=== PATIENT | male | born 1995 | race Hispanic/Latino ===

== ENCOUNTER 2024-11-07 14:20 | Emergency (ER) | payer SELFPAY ==
[2024-11-07] VITALS (23 sets, daily range): BP systolic 119–133; BP diastolic 73–92; PULSE 74–90; RESP 16–24; TEMP 36.6–36.8; O2SAT 92–98; BMI 32.2
--- NOTE | 2024-11-07 14:36 | CT_ITS ---
PROCEDURE: ABDOMEN/PELVIS W IV CONT ONLY REASON FOR EXAM: 29-year-old male, mid/upper abdominal pain nausea, vomiting, diarrhea and jaundice. Heavy alcohol abuse per patient. TECHNIQUE: Abdomen and pelvis CT with intravenous contrast. No oral contrast. IV CONTRAST: Administered. COMPARISON: None. FINDINGS: Lung bases: Small right lower lobe consolidation/atelectasis. The heart is normal in size. Liver: Mild hepatomegaly with diffuse hepatic steatosis. Ill-defined hypodensity within the caudate lobe measuring approximately 4.2 cm (series 2, image 39). The major portal veins are patent. No biliary ductal dilation. Gallbladder: The gallbladder is distended with a dependent punctate calcification. There is diffuse gallbladder wall thickening and pericholecystic fluid. Spleen: Mild splenomegaly. Pancreas: Mild pancreatic atrophy. Adrenals: Unremarkable. Kidneys: No hydronephrosis or nephrolithiasis. Bladder: Minimally distended and unremarkable. Reproductive Organs: Unremarkable. Bowel: The bowel loops are nondilated with diffuse bowel wall thickening enhancement and edema. Moderate volume abdominopelvic ascites. No free air. The appendix is unremarkable. Lymph nodes: Prominent mesenteric and periportal lymph nodes, likely reactive. Vasculature: Major vascular structures are unremarkable. Bones: Unremarkable. CT/Abdomen/Pelvis W IV Cont ONLY IMPRESSION: 1. No acute abdominopelvic finding. 2. Findings of cirrhosis and portal hypertension with mild hepatosplenomegaly a nd moderate volume ascites. Diagnostic and therapeutic paracentesis may be useful for further characterization. 3. Findings compatible with portal colopathy and portal congestive cholecystopa thy. 4. Ill-defined hypodensity within the caudate lobe, which may be secondary to t iming of contrast bolus. Outpatient, nonemergent CT abdomen (liver protocol) could be performed for further evaluation if not re cently performed. One or more dose reduction techniques were used (e.g., Automated exposure contr ol, adjustment of the mA and/or kV according to patient size, use of iterative reconstruction technique). Reading Location: [facility]
[2024-11-07] MEDS: Ondansetron 4 MG/2 ML Vial IV (14:43)
[2024-11-07] MEDS: 0.9% Normal Saline (1000mL) 1,000 ML 999 ML IV (14:43)
[2024-11-07] MEDS: Morphine 4 MG/ML Syringe IV (14:43)
--- NOTE | 2024-11-07 14:49 | EDS_ITS ---
HPI <RAJ Lee - Last Filed: 11/07/24 16:59> History of Present Illness Chief Complaint: Abd Pain Narrative Narrative: Patient is a 29-year-old male with history of alcoholic cirrhosis, who is Maltese-speaking. I was able to use a interpretation service iPad throughout the entire patient interaction. Patient has been getting more yellow over the last 22 days. Patient is accompanied by his as well as his friend. Patient states he has not had a drink of alcohol in the last 10 days. Patient states that in July 2024, he had a seizure secondary to not having alcohol, and then since then has been getting yellow intermittently. Patient states that he is also having abdominal pain and distention. He has never had a paracentesis. Patient has no PCP. PFSH <RAJ Lee - Last Filed: 11/07/24 16:59> [facility] Medical History Anxiety Seizure AA (alcohol abuse) Allergy/AdvReac Type Severity Reaction Status Date / Time No Known Allergies Allergy Verified 11/07/24 14:34 Social History Smoking Status: Never smoker ROS <RAJ Lee - Last Filed: 11/07/24 16:59> ROS ED ROS Narrative Constitutional: Negative for fever, chills, weight loss, weakness Eyes: Negative for vision loss, vision change, double vision ENT: Negative for any sore throat, ear pain, congestion Cardiovascular: Negative for any chest pain, tightness, palpitations Respiratory: Negative for any cough, sputum production, hemoptysis, dyspnea, dyspnea on exertion, orthopnea Gastrointestinal: Negative for any nausea, vomiting, diarrhea, constipation, blood in stool, blood in vomit. Positive for abdominal pain, bloating : Negative for any urinary frequency, dysuria, retention, blood in urine Muscle skeletal: Negative for any neck pain, back pain Neurological: Negative for any headache, syncope, dizziness Skin: Negative for any rashes, itching, abrasions, lacerations. Positive for jaundice Psychiatric: Negative for any depression, anxiety, stress, suicidal ideation, homicidal ideation Hematologic: Negative for any excessive bruising, easy bleeding EXAM <RAJ Lee - Last Filed: 11/07/24 16:59> Physical Exam Narrative Exam Narrative: Vital signs reviewed. Upon initial evaluation, just by looking at the patient, he is severely jaundiced. Scleral icterus. HEET: Head normocephalic atraumatic, TMs clear bilaterally. Posterior pharynx is clear, dry mucous membranes. Nares clear bilaterally. Scleral icterus noted in the cornea Neck: Supple with no lymphadenopathy or tenderness. No signs of meningismus. Cardiac: Regular rate and rhythm no murmurs gallops or rubs, equal peripheral pulses bilaterally. Respiratory: Lungs clear to auscultation bilaterally. No chest tenderness. Abdomen: Patient has obvious distention, tenderness throughout the entire abdominal area. Patient's pain is mostly secondary to pressure and fluid overload. No abdominal bruit or pulsatile masses. No hepatosplenomegaly Extremities: No peripheral edema, no signs of gross trauma or deformity. Active full range of motion of all extremities. Neuro: Cranial nerves II through XII intact, no focal neurological deficits. Skin: Clean dry and intact with no rash, purpura, petechiae, vesicles or pustules. Backs/flank: No CVA tenderness, no midline spinal tenderness, no deformity. Psych: Normal mood and affect. No SI, HI or acute psychosis. Const Vital Signs: 11/07/24 14:21 11/07/24 15:21 11/07/24 16:00 Temperature 98 F Temperature Source Oral Pulse Rate 83 79 81 Respiratory Rate 24 H 16 Blood Pressure 129/92 H 131/76 H 131/78 H Blood Pressure Mean 104 94 95 Pulse Ox 98 96 98 Oxygen Delivery Method Room Air Room Air Room Air Constitutional Narrative: Jaundice <Dr. Rickey Ferrera DO - Last Filed: 11/07/24 15:47> Physical Exam Const Vital Signs: 11/07/24 14:21 11/07/24 15:21 11/07/24 16:00 Temperature 98 F Temperature Source Oral Pulse Rate 83 79 81 Respiratory Rate 24 H 16 Blood Pressure 129/92 H 131/76 H 131/78 H Blood Pressure Mean 104 94 95 Pulse Ox 98 96 98 Oxygen Delivery Method Room Air Room Air Room Air MDM <RAJ Lee - Last Filed: 11/07/24 16:59> MDM Lab Data Labs: Laboratory Results - last 24 hr 11/07/24 11/07/24 14:50 16:15 WBC 13.6 H RBC 4.39 L Hgb 14.3 Hct 41.7 MCV 95.0 H MCH 32.6 H MCHC 34.3 RDW Std Deviation 58.9 H RDW Coeff of Ortiz 17.0 H Plt Count 150 MPV 10.2 Immature Gran % (Auto) 3.800 H Neut % (Auto) 80.9 H Lymph % (Auto) 6.4 L Villalba % (Auto) 6.9 Eos % (Auto) 0.9 Baso % (Auto) 1.1 H Absolute Neuts (auto) 11.0 H Absolute Lymphs (auto) 0.87 Nucleated RBC % 0 PT 16.1 H INR 1.3 Sodium 132 L Potassium 2.7 L* Chloride 99 Carbon Dioxide 23.0 Anion Gap 10 BUN 9 Creatinine 0.96 Estim Creat Clear Calc 114.62 Est GFR (MDRD) Af Amer 118 Est GFR (MDRD) Non-Af 98 BUN/Creatinine Ratio 9.4 L Glucose 85 Lactic Acid 1.6 Calcium 8.6 Total Bilirubin 39.20 H* Direct Bilirubin 33.15 H AST 181 H ALT 49 Alkaline Phosphatase 259 H Ammonia 60.0 H Total Protein 7.2 Albumin 2.4 L Globulin 4.8 H Amylase 33 Lipase 44 L Urine Color SEE COMMENT BELOW Urine Clarity Sl. Cloudy Urine pH 7.0 Ur Specific Conover 1.005 Urine Protein 30 H Urine Glucose (UA) Normal Urine Ketones 5 H Urine Occult Blood 10 H Urine Nitrite Positive H Urine Bilirubin 6 H Urine Urobilinogen 12 H Ur Leukocyte Esterase 25 H Urine RBC 0 SEEN Urine WBC 0 SEEN Ur Squamous Epith Cells 0 SEEN Amorphous Sediment 1+ Urine Bacteria 0 SEEN Urine Mucus 0 SEEN Ethyl Alcohol < 3.0 Radiography Diagnostic Testing: Clinical Impression(s) from Imaging Studies Abdomen/Pelvis CT 11/07/24 14:36 IMPRESSION: 1. No acute abdominopelvic finding. 2. Findings of cirrhosis and portal hypertension with mild hepatosplenomegaly and moderate volume ascites. Diagnostic and therapeutic paracentesis may be useful for further characterization. 3. Findings compatible with portal colopathy and portal congestive cholecystopathy. 4. Ill-defined hypodensity within the caudate lobe, which may be secondary to timing of contrast bolus. Outpatient, nonemergent CT abdomen (liver protocol) could be performed for further evaluation if not r ecently performed. One or more dose reduction techniques were used (e.g., Automated exposure control, adjustment of the mA and/or kV according to patient size, use of iterative reconstruction technique). Reading Location: [facility] Chest X-Ray 11/07/24 15:15 IMPRESSION: NEGATIVE CHEST. Reading Location: [facility] Treatment and Re-Evaluation :: Differential diagnosis includes however is not limited to: Alcoholic cirrhosis, worsening cirrhosis, ascites, hyperbilirubinemia, dehydration, CHRISSY, electrode abnormality, alcohol abuse Patient has obvious jaundice, in no obvious respiratory distress who presents to the emergency department for worsening yellow coloration of the skin, abdominal distention. Patient has obvious cirrhosis, hyperbilirubinemia, patient is highlighter yellow. Patient will receive full abdominal workup including CBC BMP liver panel lipase amylase ammonia lactic acid. Patient received a CT scan of the abdomen pelvis as well as a chest x-ray. IV fluids to be given. Patient given for pain medicine for his abdominal pain. Patient will likely need admitted to the hospital or transferred. Patient does state last alcohol use was 10 days ago. EtOH will also be ordered. All radiologic examinations were read, reviewed by the emergency department attending. From these reads, a plan of care will be put in place. Patient CT scan of the abdomen pelvis shows no acute abdominal pelvic findings. Finding of cirrhosis and portal hypertension with mild hepatosplenomegaly and moderate volume ascites. Findings compatible with portal colopathy and portal congestive Mahnaz cystopathy. Ill-defined hypodensity within the caudate lobe which may be secondary to timing of the contrast bolus. Patient's laboratory values show slight leukocytosis with a white blood count of 13.6, hemoglobin is 14.3. Patient's PT was 16.1 and INR 1.3. Patient's chemistries demonstrate 132, patient's potassium was 2.7 this was replaced orally. Total bilirubin is 39.2 which is critical high, direct bilirubin of 33.15, AST of 181 with an alkaline phosphatase of 259, ammonia level 60 which is elevated. This could be causing the confusion. Lactulose given. Lipase is 44, alcohol level 0. Urinalysis showed dehydration, positive nitrites, however no white blood cells, no bacteria. Secondary to was not having GI, patient already seeing [facility] my Sobeida, I did reach out to [facility]. I did speak with Dr. Fine who will accept the patient. Patient will be going to [facility]. Patient family made aware. Patient stable for admission and transfer. I have personally performed a face to face assessment of the patient and have reviewed the AMAN Note. I performed a substantive portion of the visit including all aspects of the following. Use of third-green party malware analyst was utilized throughout the patient's care. my galvez findings include: History is 29-year-old male history of alcoholic cirrhosis not having any drinking for 10 days. Presenting with worsening jaundice confusion. He has never been admitted here or been seen here. Exam is distended abdomen consistent with ascites. He is clearly jaundiced. Mild confusion. No significant ecchymosis is seen. Medical Decison Making INR is 1.3. His ammonia level is elevated at 60. White count 13.6 hemoglobin 14.3 platelet count of 150. We are currently awaiting his CMP. Will speak with the hospitalist regarding potential admission here versus transfer. I did speak with her earlier regarding his case. CT of the abdomen pelvis was read by radiology and reviewed by myself. My independent interpretation a chest x-ray is no acute process. <Dr. Rickey Ferrera, DO - Last Filed: 11/07/24 15:47> [facility] History & Record Review Discussion w/independent historian: Patient and Family Lab Data Attestation: I reviewed the patient's lab results. Labs: Laboratory Results - last 24 hr 11/07/24 11/07/24 14:50 16:15 WBC 13.6 H RBC 4.39 L Hgb 14.3 Hct 41.7 MCV 95.0 H MCH 32.6 H MCHC 34.3 RDW Std Deviation 58.9 H RDW Coeff of Ortiz 17.0 H Plt Count 150 MPV 10.2 Immature Gran % (Auto) 3.800 H Neut % (Auto) 80.9 H Lymph % (Auto) 6.4 L Villalba % (Auto) 6.9 Eos % (Auto) 0.9 Baso % (Auto) 1.1 H Absolute Neuts (auto) 11.0 H Absolute Lymphs (auto) 0.87 Nucleated RBC % 0 PT 16.1 H INR 1.3 Sodium 132 L Potassium 2.7 L* Chloride 99 Carbon Dioxide 23.0 Anion Gap 10 BUN 9 Creatinine 0.96 Estim Creat Clear Calc 114.62 Est GFR (MDRD) Af Amer 118 Est GFR (MDRD) Non-Af 98 BUN/Creatinine Ratio 9.4 L Glucose 85 Lactic Acid 1.6 Calcium 8.6 Total Bilirubin 39.20 H* Direct Bilirubin 33.15 H AST 181 H ALT 49 Alkaline Phosphatase 259 H Ammonia 60.0 H Total Protein 7.2 Albumin 2.4 L Globulin 4.8 H Amylase 33 Lipase 44 L Urine Color SEE COMMENT BELOW Urine Clarity Sl. Cloudy Urine pH 7.0 Ur Specific Conover 1.005 Urine Protein 30 H Urine Glucose (UA) Normal Urine Ketones 5 H Urine Occult Blood 10 H Urine Nitrite Positive H Urine Bilirubin 6 H Urine Urobilinogen 12 H Ur Leukocyte Esterase 25 H Urine RBC 0 SEEN Urine WBC 0 SEEN Ur Squamous Epith Cells 0 SEEN Amorphous Sediment 1+ Urine Bacteria 0 SEEN Urine Mucus 0 SEEN Ethyl Alcohol < 3.0 Radiography Diagnostic Testing: Clinical Impression(s) from Imaging Studies Abdomen/Pelvis CT 11/07/24 14:36 IMPRESSION: 1. No acute abdominopelvic finding. 2. Findings of cirrhosis and portal hypertension with mild hepatosplenomegaly an d moderate volume ascites. Diagnostic and therapeutic paracentesis may be useful for further characterization. 3. Findings compatible with portal colopathy and portal congestive cholecystopathy. 4. Ill-defined hypodensity within the caudate lobe, which may be secondary to timing of contrast bolus. Outpatient, nonemergent CT abdomen (liver protocol) could be performed for further evaluation if not recently performed. One or more dose reduction techniques were used (e.g., Automated exposure control, adjustment of the mA and/or kV according to patient size, use of iterative reconstruction technique). Reading Location: [facility] Chest X-Ray 11/07/24 15:15 IMPRESSION: NEGATIVE CHEST. Reading Location: [facility] Management Discussion w/another healthcare provider: Hospitalist Treatment and Re-Evaluation :: Differential diagnosis includes however is not limited to: Alcoholic cirrhosis, worsening cirrhosis, ascites, hyperbilirubinemia, dehydration, CHRISSY, electrode abnormality, alcohol abuse Patient has obvious jaundice, in no obvious respiratory distress who presents to the emergency department for worsening yellow coloration of the skin, abdominal distention. Patient has obvious cirrhosis, hyperbilirubinemia, patient is highlighter yellow. Patient will receive full abdominal workup including CBC BMP liver panel lipase amylase ammonia lactic acid. Patient received a CT scan of the abdomen pelvis as well as a chest x-ray. IV fluids to be given. Patient given for pain medicine for his abdominal pain. Patient will likely need admitted to the hospital or transferred. Patient does state last alcohol use was 10 days ago. EtOH will also be ordered. All radiologic examinations were read, reviewed by the emergency department attending. From these reads, a plan of care will be put in place. I have personally performed a face to face assessment of the patient and have reviewed the AMAN Note. I performed a substantive portion of the visit including all aspects of the following. Use of third-green party malware analyst was utilized throughout the patient's care. my galvez findings include: History is 29-year-old male history of alcoholic cirrhosis not having any drinking for 10 days. Presenting with worsening jaundice confusion. He has never been admitted here or been seen here. Exam is distended abdomen consistent with ascites. He is clearly jaundiced. Mild confusion. No significant ecchymosis is seen. Medical Decison Making INR is 1.3. His ammonia level is elevated at 60. White count 13.6 hemoglobin 14.3 platelet count of 150. We are currently awaiting his CMP. Will speak with the hospitalist regarding potential admission here versus transfer. I did speak with her earlier regarding his case. CT of the abdomen pelvis was read by radiology and reviewed by myself. My independent interpretation a chest x-ray is no acute process. Discharge Plan Triage Chief Complaint: Abd Pain ED Midlevel Provider: Sang Fleming ED Provider: Rickey Ferrera Dx/Rx/DC Orders Clinical Impression: Alcoholic cirrhosis of liver, Ascites, Increased ammonia level, Acute hypokalemia Primary Care Provider: Care Physician,No Primary Referrals: NOT,DEFINED [Non-Staff] - Print Language: Maltese Disposition Disposition: Acute Care Hospital Discharge Location: [facility]
[2024-11-07 14:59] LABS: Absolute Lymphocyte Count 0.87 X10^3/uL (0.83-4.51); Basophil# 0.15 X10^3/uL; Basophil% 1.1 % (0-1); Eosinophil# 0.12 X10^3/uL; Eosinophils% 0.9 % (0-5); Hematocrit 41.7 % (40-54); Hemoglobin 14.3 g/dL (13.0-16.5); Lymphocyte # 0.87 X10^3/ul (0.83-4.51); Lymphocyte % 6.4 % (19-41); Mean Corp Hgb Conc 34.3 g/dL (32-36); Mean Corpuscular Hgb 32.6 pg (27.0-32.0); Mean Platelet Vol. 10.2 fl (6.2-12.0); Monocyte# 0.93 X10^3/uL; Monocyte% 6.9 % (0-10); NRBC Flagged by Analyzer 0 % (0-5); Neutrophil # 10.99 X10^3/uL (2.7-7.7); Neutrophil % 80.9 % (47-70); Platelet Count 150 K/mm3 (150-450); RBC Distribution Width SD 58.9 fl (35.1-43.9); Red Blood Count 4.39 M/mm3 (4.6-6.2); White Blood Count 13.6 K/mm3 (4.4-11.0)
[2024-11-07 15:10] LABS: International Normalized Ratio 1.3; Prothrombin Time (Protime)PT. 16.1 SECONDS (11.7-14.9)
--- NOTE | 2024-11-07 15:15 | RAD_ITS ---
PROCEDURE: CHEST 1 VIEW (PORTABLE) REASON FOR EXAM: 29-year-old male, cough, abdominal pain, nausea, vomiting and diarrhea, jaundice. TECHNIQUE: Frontal view of the chest. COMPARISON: Same day CT abdomen pelvis. FINDINGS: The heart size is normal. Low lung volumes bilaterally. No focal consolidation, pleural effusion or pneumothorax. The bones are unremarkable. RAD/Chest 1 View (Portable) IMPRESSION: NEGATIVE CHEST. Reading Location: [id number]
[2024-11-07 15:48] LABS: Alcohol, Blood (Medical)-Serum < 3.0 mg/dL; Lactic Acid 1.6 mmol/L (0.4-1.9)
[2024-11-07 15:51] LABS: AST(SGOT) 181 U/L (15-37); Alanine Aminotransfer ALT/SGPT 49 U/L (16-61); Albumin, Serum 2.4 g/dL (3.2-5.0); Alkaline Phosphatase 259 U/L (45-117); Amylase 33 U/L (25-115); Anion Gap 10 (5-15); BUN 9 mg/dL (7-18); BUN/Creat Ratio 9.4 RATIO (10-20); Bilirubin, Direct 33.15 mg/dL (0.00-0.30); Calcium,Total 8.6 mg/dL (8.5-10.1); Chloride 99 mmol/L (98-107); Creatinine, Serum 0.96 mg/dL (0.70-1.30); EST Glomerular Filtration Rate 98 mL/min (>60); Est Glom Filt Rate - Afr Amer 118 mL/min (>60); Estimated Creatinine Clearance 114.62 ml/min; Globulin 4.8 g/dL (2.2-4.2); Glucose 85 mg/dL (74-106); Lipase 44 U/L (73-393); Potassium 2.7 mmol/L (3.5-5.1); Protein, Total 7.2 g/dL (6.4-8.2); Sodium Level 132 mmol/L (136-145)
[2024-11-07] MEDS: Lactulose 20 GM/30 ML UDC PO (16:15)
[2024-11-07 16:21] LABS: Bacteria 0 SEEN /hpf (None Seen); Mucous, Urine 0 SEEN /hpf (<or=2+); Squamous Epithelial Cells - UA 0 SEEN /hpf (0-5); White Blood Cells 0 SEEN /hpf (0-5)
[2024-11-07 16:27] LABS: Glucose, Dipstick Normal (Normal); Ketone-Dipstick 5 mg/dl (Negative); Leukocyte Esterase-Dipstick 25 /ul (Negative); Nitrite-Dipstick Positive (Negative); Occult Blood-Urine 10 /ul (Negative); Protein-Dipstick 30 mg/dl (Negative); Specific Gravity, Urine 1.005 (1.002-1.030); Urine Clarity Sl. Cloudy (Clear); Urine Urobilinogen 12 mg/dl (Normal)
[2024-11-07 16:32] LABS: Color, Urine SEE COMMENT BELOW (Yellow); Urine Bilirubin Dipstick 6 mg/dL (Negative)
[2024-11-07 16:34] LABS: Amorphous Sediment 1+
[2024-11-07 16:35] LABS: Red Blood Cells-Urine 0 SEEN /hpf (0-5)
--- NOTE | 2024-11-07 16:43 | ED.RN ---
ACCEPTED AT [facility] MAIN @ [id number] WAITING FOR A BED ASSIGNMENT.
[2024-11-07] MEDS: Potassium Chloride Oral Tablet 20 MEQ 40 MEQ PO (16:45)
--- NOTE | 2024-11-07 19:45 | ED.RN ---
[facility] Main accepted @ 192. Pt going to G100, bed 7, nurse to nurse # [phone], accepted by Dr. Fine. Called [facility] ambulance at 1930, spoke with Keshia. eta is 3 hours ([id number]).
== END 2024-11-07 21:47 | disposition short-term general hospital (02) ==
PROVIDERS: Nurse Practitioner; Emergency Provider Emergency Medicine; Visit Provider Emergency Medicine
DX: K70.31 Alcoholic cirrhosis of liver with ascites (principal); E87.6 Hypokalemia; R10.9 Unspecified abdominal pain
CPT/HCPCS: 71045; 74177; 80048; 80076; 81001; 82077; 82140; 82150; 83605; 83690; 85025; 85610; 96361; 96374; 96375; 96376; 99285; Q9967; A4216; J2405